=== PATIENT | female | born 1955 | race Caucasian/White ===

== ENCOUNTER 2017-11-11 12:09 | Day surgery (SDC) | payer OTHER ==
[2017-11-11] MEDS ORDERED: LIDOCAINE 2% (SDV) 5 ML INJ (14:37)
[2017-11-11] MEDS ORDERED: PROPOFOL 20 ML (14:37)
== END 2017-11-11 15:57 | disposition home or self-care (01) ==
LOC: GIL 12:09
DX: K21.9 Gastro-esophageal reflux disease without esophagitis (principal); E78.5 Hyperlipidemia, unspecified
CPT/HCPCS: 43239; 88305; 88312